=== PATIENT | male | born 2000 | race African-American/Black ===

== ENCOUNTER 2024-06-08 01:40 | Emergency (ER) | payer OTHER, SELFPAY ==
[2024-06-08] VITALS (8 sets, daily range): BP systolic 92–128; BP diastolic 48–76; PULSE 52–79; RESP 12–22; TEMP 36.3–36.9; O2SAT 96–100; BMI 21.8
[2024-06-08] MEDS: diphenhydrAMINE HCL 50 MG/ML VIAL IM (01:30)
[2024-06-08] MEDS: Haloperidol Lactate 5 MG/ML VIAL 10 MG IM (01:30)
[2024-06-08] MEDS: LORazepam 2 MG/ML VIAL IM (01:30)
--- NOTE | 2024-06-08 01:43 | ED_ITS ---
HPI - Alcohol General Chief Complaint: ETOH/Substance Use Stated Complaint: ETOH Source: EMS Mode of arrival: EMS Limitations: other (Aggressive and uncooperative) History of Present Illness ED Provider: Dr. Laura Neely HPI narrative: Patient comes to the emergency room via EMS. On arrival to the ED, patient aggressive, punching, no giving any information, seems to be intoxicated. According to EMS, the patient called the police from the street for unclear reason. When PD arrived, patient was acting erratic, uncooperative. PD called EMS and brought him to the emergency room. Patient too aggressive, not answering any questions. Related Data Allergies Allergy/AdvReac Type Severity Reaction Status Date / Time Unable to Assess Allergy Verified 06/08/24 01:45 Review of Systems 2 Review of Systems: Yes Unobtainable due to mental status PMFSH Social History Social History Advance Directives: No Advance Directives Information Provided: No Physical Exam ED Vital Signs: Vital Signs - 24 hr 06/08/24 01:39 06/08/24 04:21 06/08/24 05:49 Temperature 97.4 F 98.0 F Pulse Rate 79 60 73 Respiratory Rate 22 H 12 16 Blood Pressure 128/65 92/52 L 99/61 Pulse Oximetry 97 97 100 Oxygen Delivery Method Room Air Room Air Room Air BMI result Body Mass Index 21.8 Const Other: Appearance: Alert. Aggressive, punching, spitting, trying to bite staff Eyes: Pupils equal, round and reactive to light. ENT: Pharynx normal. Neck: Normal inspection. Neck supple. No lymph nodes noted. No crepitus CVS: Normal heart rate and rhythm. Pulses normal. Normal S1 and S2 Respiratory: No respiratory distress. Breath sounds normal. No Wheezing. No rales Abdomen: Soft and nontender. No rigidity. No distention. Skin: Skin warm and dry. Normal skin color. Normal skin turgor. Extremities: No lower extremity edema. No Lacerations. No Rash Neuro: Moving all extremities Psych: Aggressive, combative, trying to punch kick can not bite staff Course Course Course Narrative: Patient's nurses, security, EMS and PD tried to redirect the patient. However, patient is too altered and aggressive. Patient had to be medically restrained. Patient was given Haldol 10 mg, Benadryl 50 mg, Ativan 2 mg Patient sleeping comfortably after the IM medication. We will obtain on medication when the patient wakes up. Physician observation started at 01:46. Medical Decision Making Medical Decision Making [facility] Narrative: My interpretation of labs: No significant abnormality in patient's hematology and chemistry, ETOH 180 Urine toxicology pending Patient is off restraints, sleeping -vitals stable -when sober, assess for SI, HI, detox -physician observation started at 04:45 Differential Diagnosis Differential Diagnoses: The differential diagnosis associated with the presentation includes (Alcohol intoxication, polysubstance abuse) Admission/Observation Consideration of admission/observation: Escalation of care including admission/observation considered (He needed to be chemically restrained. Patient is to be sober for further evaluation.) Lab Data [facility] Lab Attestation statement: I reviewed the patient's lab results. 06/08/24 02:03 06/08/24 02:03 Labs: Lab Results 06/08/24 Range/Units 02:03 WBC 5.9 (4.8-10.8) X10*3/uL RBC 4.14 L (4.60-5.80) X10*6/uL Hgb 13.3 L (14.0-18.0) g/dl Hct 38.0 L (42.0-52.0) % MCV 91.8 (80.0-98.0) fL MCH 32.1 (27.0-33.0) pg MCHC 35.0 (31.0-36.0) g/dl RDW 11.5 (11.0-16.0) % Plt Count 247 (160-400) X10*3/uL MPV 10.5 (9.4-12.4) fL Immature Gran % (Auto) 0.2 (0.0-0.4) % Neut % (Auto) 72.7 (45-73) % Lymph % (Auto) 20.1 (20-40) % Runnels % (Auto) 5.4 (2-11) % Eos % (Auto) 1.3 (0-4) % Baso % (Auto) 0.3 (0-2) % Lymph # (Auto) 1.2 (1.2-4.9) X10*3/uL Runnels # (Auto) 0.3 (0.1-1.2) X10*3/uL Eos # (Auto) 0.1 (0.0-0.4) X10*3/uL Baso # (Auto) 0.0 (0.0-0.2) X10*3/uL Abs Immat Gran (auto) 0.01 (0.00-0.03) X10*3/uL Absolute Neuts (auto) 4.3 (2.0-8.3) x10*3/uL Absolute Nucleated RBC 0.000 (0.0-0.012) X10*3/uL Nucleated RBC % (auto) 0.0 (0.0-0.2) /100WBC Sodium 139 (135-145) mmol/L Potassium 3.5 (3.3-5.1) mmol/L Chloride 105 (96-108) mmol/L Carbon Dioxide 20 L (22-29) mmol/L Anion Gap 18 (12-20) BUN 19 H (9-16) mg/dL Creatinine 0.82 (0.5-1.4) mg/dL Estim Creat Clear Calc 121.4 Estimated GFR > 60 Random Glucose 102 (60-115) mg/dL Calcium 8.8 (8.4-10.2) mg/dL Total Bilirubin 0.3 (0.0-1.0) mg/dL Direct Bilirubin 0.1 (0.0-0.5) mg/dL AST 336 H (5-37) U/L ALT 168 H (0-40) U/L Alkaline Phosphatase 46 (39-117) U/L Total Protein 7.3 (6.5-8.0) g/dL Albumin 4.3 (3.5-5.0) g/dL Ethyl Alcohol 180 mg/dL Medications Administered Discontinued Medications Generic Name Dose Route Start Last Admin Trade Name Freq PRN Reason Stop Dose Admin Diphenhydramine HCl 50 mg 06/08/24 01:27 06/08/24 01:30 Diphenhydramine Hcl 50 Mg/Ml Vial IM 06/08/24 01:28 50 mg ONCE ONE Administration Haloperidol Lactate 10 mg 06/08/24 01:27 06/08/24 01:30 Haloperidol Lactate 5 Mg/Ml Vial IM 06/08/24 01:28 5 mg STAT STA Administration Lorazepam 2 mg 06/08/24 01:27 06/08/24 01:30 Lorazepam 2 Mg/Ml Vial IM 06/08/24 01:28 2 mg STAT STA Administration Critical Care Time Critical Care Time Critical Care Time: Yes Total Critical Care Time: 60 Attestation: I have personally provided critical care time. Time includes review of lab data, radiology results, discussion with consultants, and monitoring for potential decompensation. Intervention performed as documented. Discharge Plan Discharge Clinical Impression: Alcohol intoxication Patient Disposition: Still a Patient Print Language: Romansh
--- NOTE | 2024-06-08 02:00 | PC.NURSE ---
Upon arrival to ED patient agitated, aggressive, spitting at staff, and not following basic commands. Security at bedside. EMS reports +ETOH use. Pt medicated per JUL.
[2024-06-08 02:07] LABS: MANUAL DIFF FLAG NO
[2024-06-08 02:17] LABS: Basophils Percent Auto 0.3 % (0-2); Eosinophils Absolute Auto 0.1 X10*3/uL (0.0-0.4); Eosinophils Percent Auto 1.3 % (0-4); Hemoglobin 13.3 g/dl (14.0-18.0); Imm Gran Abs Auto 0.01 X10*3/uL (0.00-0.03); Imm Gran Pct Auto 0.2 % (0.0-0.4); Lymphocytes Absolute Auto 1.2 X10*3/uL (1.2-4.9); Lymphocytes Percent Auto 20.1 % (20-40); Mean Corpuscular Hemoglobin 32.1 pg (27.0-33.0); Mean Corpuscular Volume 91.8 fL (80.0-98.0); Mean Platelet Volume 10.5 fL (9.4-12.4); Monocytes Absolute Auto 0.3 X10*3/uL (0.1-1.2); Monocytes Percent Auto 5.4 % (2-11); Neutrophils Absolute Auto 4.3 x10*3/uL (2.0-8.3); Neutrophils Percent Auto 72.7 % (45-73); Platelet Count 247 X10*3/uL (160-400); Red Blood Count 4.14 X10*6/uL (4.60-5.80); Red Cell Distribution Width 11.5 % (11.0-16.0); White Blood Count 5.9 X10*3/uL (4.8-10.8)
[2024-06-08 02:34] LABS: Alanine Aminotransferase 168 U/L (0-40); Albumin Level 4.3 g/dL (3.5-5.0); Alkaline Phosphatase 46 U/L (39-117); Anion Gap 18 (12-20); Aspartate Amino Transferase 336 U/L (5-37); Bilirubin Direct 0.1 mg/dL (0.0-0.5); Bilirubin Total 0.3 mg/dL (0.0-1.0); Blood Urea Nitrogen 19 mg/dL (9-16); Calcium 8.8 mg/dL (8.4-10.2); Carbon Dioxide 20 mmol/L (22-29); Chloride 105 mmol/L (96-108); Creatinine Clr Calc Pharmacy 121.4; Estimated Glomerular Filt Rate > 60; Ethanol 180 mg/dL; Glucose Random 102 mg/dL (60-115); Potassium 3.5 mmol/L (3.3-5.1); Sodium 139 mmol/L (135-145); Total Protein 7.3 g/dL (6.5-8.0)
--- NOTE | 2024-06-08 02:47 | MHC.EDTECH ---
patient belongings in [facility] shelf 2
--- NOTE | 2024-06-08 06:02 | PC.NURSE ---
Pt incontinent of urine, incontinent care provided. New gown and bed linens placed.
[2024-06-08 08:15] LABS: Amphetamine Screen Urine Not Detected (Not Detect); Barbiturates, Urine Not Detected (Not Detect); Benzodiazepines Screen Urine Not Detected (Not Detect); Buprenorphine Scr Not Detected (Not Detect); Cannabinoid Screen Urine POSITIVE (Not Detect); Cocaine Screen Urine POSITIVE (Not Detect); Fentanyl, urine Not Detected (Not Detect); Methadone Screen, Urine Not Detected (Not Detect); Opiate Screen Urine Not Detected (Not Detect); Oxycodone Screen Urine Not Detected (Not Detect); Phencyclidine Screen Urine Not Detected (Not Detect)
--- NOTE | 2024-06-08 08:54 | PC.NURSE ---
Mercedeztericardo at bedside, Pt not able to be assessed at this time. Pt appears to be sleeping, non labored, equal respirations.
--- NOTE | 2024-06-08 09:18 | PC.NURSE ---
this nurse took over pt care at 9am, pt currently sleeping, rr equal/non labored, vitals currently stable, call rucker within reach, plan of care ongoing
--- NOTE | 2024-06-08 11:30 | MHC.RECOVRN ---
Met with [facility] in ED6 to discuss ongoing problematic alcohol and cocaine use. Pt reported using cocaine daily via inhalation (snorting) $60 worth as well as drinking alcohol daily a couple of pints . Pt reporting x1 ATS admission at [facility] able to maintain a 1-month period of sobriety. Pt denies hx of withdrawal seizures. Pt also uses marijuana but is not concerned about marijuana use. Pt rating 6/10 for depression and anxiety. Pt denies SI/HI (no ideation, plan, or intent). Pt denies auditory/visual hallucinations. Pt requesting ATS as he is not able to manage his alcohol/cocaine use alone . Referrals to be sent to ATS facilities for review. See recovery assessment for more info.
--- NOTE | 2024-06-08 12:23 | MHC.RECOVRN ---
No beds at [facility] and no beds at [facility], waiting to hear back from [facility] [place], and [facility].
--- NOTE | 2024-06-08 13:56 | MHC.RECOVRN ---
Per staff at [facility] and [facility], pt is not allowed to go back there due to a history of aggression there. Pt now reports he wants to d/c to his baby mom's house. Information and written materials on harm reduction and ATS facilities offered and accepted. Pt also encouraged to walk-in to the [facility] on Monday during walk-in hours.
== END 2024-06-08 14:19 | disposition home or self-care (01) ==
PROVIDERS: Emergency Provider Emergency Medicine
DX: F10.920 Alcohol use, unspecified with intoxication, uncomplicated (principal); Y90.6 Blood alcohol level of 120-199 mg/100 ml; F14.90 Cocaine use, unspecified, uncomplicated; F12.90 Cannabis use, unspecified, uncomplicated; R45.6 Violent behavior; F32.A Depression, unspecified; F41.9 Anxiety disorder, unspecified
CPT/HCPCS: 36415; 80048; 80076; 80307; 85025; 96372; 99284; 99285; J1200; J1630; J2060; S9485

== ENCOUNTER 2024-11-02 04:13 | Emergency (ER) | payer OTHER, SELFPAY ==
[2024-11-02 04:29] VITALS: BP 131/79; PULSE 63; RESP 14; TEMP 36.6; O2SAT 98; BMI 22.1
--- NOTE | 2024-11-02 04:33 | PC.NURSE ---
arrived calmly. cooperative. answers questions appropriately. affect flat. alert, oriented, eyes bloodshot, speech is clear. breath smells like ethanol. pants have urine on them from when he attempted to pee in bushes. declines new clothes. refuses labs stating he hates needles. allows vitals. states he had 2 shots earlier then drank beer the rest of the day. he does this daily as well as smoke weed. verbally denies SI and HI. today is anniversary of father's 1.5 yrs ago. he is holding his father's urn in hand. pt is homeless without a job. MD Rico at bedside at [phone]. pt states he does not want any help. pt accepted [facility]an[facility] jasmin, declines food or warm blanket
--- NOTE | 2024-11-02 04:49 | ED_ITS ---
HPI - Alcohol General Chief Complaint: ETOH/Substance Use Stated Complaint: ETOH Time Seen by Provider: 11/02/24 04:44 Source: patient Mode of arrival: EMS Limitations: no limitations History of Present Illness ED Provider: HPI narrative: Patient has been depressed for some time especially after his father about a minute half year ago been drinking alcohol very often brought by EMS when patient was knocking at his ex-girlfriend house Related Data Allergies Allergy/AdvReac Type Severity Reaction Status Date / Time Unable to Assess Allergy Verified 11/02/24 05:06 Review of Systems Review of Systems: Yes all other systems are reviewed and are negative [facility] Social History Social History Alcohol intake: current Alcohol intake frequency: 3 or more drinks per day Alcohol type: beer and hard liquor Smoked in Last 30 Days: Yes Use of substances other than those prescribed or required for medical reasons: Yes Substance Use Type: Marijuana Advance Directives: No Advance Directives Information Provided: No Do you have a plan to hurt others: No Plan Physical Exam ED Vital Signs: Vital Signs - 24 hr 11/02/24 04:29 11/02/24 05:12 Temperature 97.8 F 97.8 F Pulse Rate 63 63 Respiratory Rate 14 14 Blood Pressure 131/79 131/79 Pulse Oximetry 98 98 Oxygen Delivery Method Room Air BMI result Body Mass Index 22.1 Appearance: Alert. Oriented X3. No acute distress. ETOH++ Eyes: PERRLA, No Nystagmus ENT: Pharynx normal. Oral Mucosa moist Neck: Normal inspection. Neck supple. CVS: Normal heart rate and rhythm. Pulses normal. Respiratory: No respiratory distress. Equal air entry bilateral, no wheezing/rales/rhonchi Abdomen: Soft and nontender. Bowel sounds are present, no mass palpable, no CVA tenderness Skin: Skin warm and dry. Normal skin color. Normal skin turgor. Extremities: No lower extremity edema. No calf tenderness Psych depression+ denies any SI or HI no hallucination or delusion Neuro: Oriented X 3. No motor deficit. No sensory deficit.No cerebellar signs , cranial nerves II-XII intact Medical Decision Making Medical Decision Making MDM Narrative: Patient's depression with alcohol use says that he been more depressed and homeless more stressful as his father about 18 months ago refusing any help does not want to be in the hospital does not want any help for detox or alcohol abuse Discharge Plan Discharge Clinical Impression: Alcoholic intoxication Patient Disposition: Home, Self-Care Instructions: Abuse of Alcohol (ED) Additional Instructions: Stop drinking alcohol Follow up with detoxAlcohol use disorder You were seen in the Emergency Department today for treatment of alcohol use disorder.? You may have been given medications to help with your withdrawal symptoms.? Please do not drink alcohol with them. This is very dangerous and can cause respiratory depression or other adverse reactions depending on the medication. If you would like to cut down or stop your alcohol use please consider calling our outpatient Addiction Treatment office:? [facility] ([id number]) [address] [place] [address] ? You have also been given a list of treatment providers in the area that can assist as well.? If you experience seizures, vomiting blood, black stools, falls, severe headache, chest pain, fevers, trouble breathing, hallucinations or any other concerns you need to call 911 or seek immediate care. Please stay hydrated. Interventions: ED Discharge Assessment Last Done: 11/02/24 05:12 Discharge Date/Time: 11/02/24 05:14 Print Language: Divehi
[2024-11-02 05:12] VITALS: BP 131/79; PULSE 63; RESP 14; TEMP 36.6; O2SAT 98
== END 2024-11-02 05:14 | disposition home or self-care (01) ==
PROVIDERS: Emergency Provider Internal Medicine
DX: F10.120 Alcohol abuse with intoxication, uncomplicated (principal); Y90.9 Presence of alcohol in blood, level not specified; F32.A Depression, unspecified; Z59.00 Homelessness unspecified; Z72.89 Other problems related to lifestyle; Z63.4 Disappearance and death of family member
CPT/HCPCS: 99282; 99283